=== PATIENT | female | born 1980 | race Caucasian/White ===

== ENCOUNTER 2017-07-27 09:37 | Emergency (ER) | payer BC ==
[2017-07-27 09:44] VITALS: BP 126/69
--- NOTE | 2017-07-27 10:14 | UC ---
Hand/Wrist HPI - HPI Summary HPI Summary: 36 yo female was trying start a rototiller yesterday pull cord snapped back and struck the radial aspect of her left wrist hurts to extend wrist she is right handed - History Of Current Complaint Chief Complaint: UCUpperExtremity Stated Complaint: WRIST INJURY Time Seen by Provider: 07/27/17 09:51 Hx Obtained From: Patient Hx Last Menstrual Period: 07/24/17 Onset/Duration: Sudden Onset, Lasting Hours Severity Initially: Moderate Severity Currently: Moderate Pain Intensity: 7 Pain Scale Used: 0-10 Numeric Character Of Pain: Aching, Throbbing Aggravating Factor(s): Movement, Flexion Associated Signs And Symptoms: Positive: Swelling Related History: Dominant Hand Right - Allergies/Home Medications Allergies/Adverse Reactions: Allergies Allergy/AdvReac Type Severity Reaction Status Date / Time amoxicillin [From Augmentin] Allergy Hives Verified 07/27/17 10:19 azithromycin Allergy Hives Verified 07/27/17 10:19 clarithromycin [From Biaxin] Allergy Hives Verified 07/27/17 10:19 clavulanic acid Allergy Hives Verified 07/27/17 10:19 [From Augmentin] erythromycin base Allergy Hives Verified 07/27/17 10:20 gluten Allergy Rash Verified 07/27/17 10:19 loratadine Allergy Hives Verified 07/27/17 10:19 Penicillins Allergy Hives Verified 07/27/17 10:19 Sulfa (Sulfonamide Allergy Hives Verified 07/27/17 10:20 Antibiotics) vancomycin Allergy Hives Verified 07/27/17 10:20 DAIRY Allergy Severe HEAD TO Uncoded 07/27/17 10:14 TOE RASH toujeo insulin Allergy Hives Uncoded 07/27/17 10:14 Home Medications: Home Medications Calcium Carbonate [Calcium] 600 mg PO DAILY 07/27/17 [History Confirmed 07/27/17 ] Diclofenac Potassium [Zipsor] 25 mg PO DAILY 07/27/17 [History Confirmed ] Omeprazole [Omeprazole] 40 mg PO DAILY 07/27/17 [History Confirmed 07/27/17] Rosuvastatin Calcium [Rosuvastatin Calcium] 10 mg PO DAILY 07/27/17 [History Confirmed 07/27/17] PMH/Surg Hx/FS Hx/Imm Hx Previously Healthy: Yes Endocrine History: Diabetes, Dyslipidemia Cardiovascular History: Hypertension - Surgical History Surgical History: None - Family History Known Family History: Positive: Hypertension - Social History Alcohol Use: Rare Substance Use Type: None Smoking Status (MU): Never Smoked Tobacco - Immunization History Most Recent Influenza Vaccination: Fall 2014 Vaccination Up to Date: Yes Review of Systems Constitutional: Negative Skin: Negative Eyes: Negative ENT: Negative Respiratory: Negative Cardiovascular: Negative Gastrointestinal: Negative Genitourinary: Negative Motor: Negative Neurovascular: Negative Musculoskeletal: Arthralgia, Myalgia Neurological: Negative Psychological: Negative Is Patient Immunocompromised?: No All Other Systems Reviewed And Are Negative: Yes Physical Exam Triage Information Reviewed: Yes Appearance: Well-Appearing, No Pain Distress, Well-Nourished Vital Signs: Initial Vital Signs Temp 98 F 07/27/17 09:40 Pulse 80 07/27/17 09:40 Resp 17 07/27/17 09:40 BP 126/69 07/27/17 09:40 Pulse Ox 100 07/27/17 09:40 Vital Signs Reviewed: Yes Eyes: Positive: Conjunctiva Clear ENT: Positive: Hearing grossly normal. Negative: Nasal congestion, Nasal drainage, Trismus, Muffled voice, Hoarse voice Neck: Positive: Supple, Nontender Respiratory: Positive: Lungs clear, Normal breath sounds, No respiratory distress, No accessory muscle use Cardiovascular: Positive: RRR, No Murmur Musculoskeletal: Positive: Other: - swollen over radial aspect of wrist/(+) [place] Neurological: Positive: Alert Psychological Exam: Normal Skin Exam: Normal Diagnostics - Radiology No standard instances Xray Interpretation: No Acute Changes Radiology Interpretation Completed By: Radiologist Hand/Wrist Course/Dx - Differential Dx/Diagnosis Provider Diagnoses: left wrist contusion Discharge - Sign-Out/Discharge Documenting (check all that apply): Discharge/Admit/Transfer - Discharge Plan Condition: Stable Disposition: HOME Patient Education Materials: Contusion in Adults (ED) Referrals: Bao Escobedo MD [Primary Care Provider] - 1 Week (if not better) Additional Instructions: rest ice tylenol - Billing Disposition and Condition Condition: STABLE Disposition: Home
--- NOTE | 2017-07-27 10:21 | RAD ---
HISTORY: injury (radial aspect) COMPARISONS: None VIEWS: 4, Frontal, lateral, oblique, and scaphoid deviation views of the left wrist FINDINGS: BONE DENSITY: Normal. BONES: There is no displaced fracture. JOINTS: There is no arthropathy. ALIGNMENT: There is no dislocation. SOFT TISSUES: Unremarkable. OTHER FINDINGS: None. IMPRESSION: NO ACUTE OSSEOUS INJURY. IF SYMPTOMS PERSIST, RECOMMEND REPEAT IMAGING.
== END 2017-07-27 10:30 | disposition home or self-care (01) ==
LOC: UCEAST 09:37
DX: S60.212A Contusion of left wrist, initial encounter (principal); W22.8XXA Striking against or struck by other objects, initial encounter; Y93.89 Activity, other specified; Y92.9 Unspecified place or not applicable; E11.9 Type 2 diabetes mellitus without complications; E78.5 Hyperlipidemia, unspecified; I10 Essential (primary) hypertension; Z88.1 Allergy status to other antibiotic agents; Z88.0 Allergy status to penicillin; Z88.2 Allergy status to sulfonamides; Z82.49 Family history of ischemic heart disease and other diseases of the circulatory system
CPT/HCPCS: 99211; G0463